=== PATIENT | female | born 1995 | race Caucasian/White ===

== ENCOUNTER 2016-03-04 16:54 | Emergency (ER) | payer BC ==
[2016-03-04 17:21] VITALS: BP 131/78
--- NOTE | 2016-03-04 18:32 | UC ---
Abdominal Pain Female HPI - HPI Summary HPI Summary: intermittent nausea and vomiting for past few weeks. Feels a wave of nausea, has a small amount of emesis. "I could probably control it and not vomit if I tried hard enough." No new meds. No new foods. No medical illnesses. No weight loss. Appetite is good despite the N/V. Did a home test recently, it was negative. She is on contraceptives, hasn't changed recently. Regular menses , expects period any day. NO vaginal discharge or spotting. Today she noticed mild urinary discomfort, but no urinary symptoms before today. - History of Current Complaint Chief Complaint: UCGeneralIllness Stated Complaint: NAUSEA,VOMITING Time Seen by Provider: 03/04/16 18:19 Hx Obtained From: Patient Hx Last Menstrual Period: 02/11/16 Onset/Duration: Lasting Weeks - 2 Timing: Intermittent Episodes Lasting: - a few seconds of nausea Severity Initially: Mild Severity Currently: None - did vomit three times today ("tiny amounts"), which was her worst day so far. No abdominal pain Radiates: No Character: Other - there is no abdominal discomfort Aggravating Factor(s): Nothing Alleviating Factor(s): Nothing Associated Signs and Symptoms: Positive: Urinary Symptoms - today noted slight dysuria/burning, Nausea, Vomiting. Negative: Diaphoresis, Fever, Cough, Chest Pain, Dizzy, Back Pain, Constipation, Blood in Stool, Decreased Appetite, Vaginal Bleeding, Vaginal Discharge, Diarrhea - Risk Factors Ectopic Risk Factor: Negative Ovarian Torsion Risk Factor: Negative Allergies/Adverse Reactions: Allergies Allergy/AdvReac Type Severity Reaction Status Date / Time Penicillins Allergy Unknown Unknown Verified 03/04/16 17:21 Reaction Details Home Medications: Home Medications Oral Contraceptives DAILY 03/04/16 [History] PMH/Surg Hx/FS Hx/Imm Hx Previously Healthy: Yes Psychological History Of: Reports: Bipolar Disorder - Surgical History Surgical History: None - Family History Known Family History: Negative: Cardiac Disease Family History: no cardio-vascular issues in family lineage - Social History Occupation: Employed Full-time Lives: With Family Alcohol Use: Weekly Substance Use Type: None Smoking Status (MU): Never Smoked Tobacco - Immunization History Vaccination Up to Date: Yes Review of Systems Constitutional: Negative Skin: Negative Eyes: Negative ENT: Negative Respiratory: Negative Cardiovascular: Negative Gastrointestinal: Vomiting - nausea Genitourinary: Negative Motor: Negative Neurovascular: Negative Musculoskeletal: Negative Neurological: Negative Psychological: Negative All Other Systems Reviewed And Are Negative: Yes Physical Exam Triage Information Reviewed: Yes Appearance: Well-Appearing, No Pain Distress, Well-Nourished Vital Signs: Initial Vital Signs Temp 98.1 F 03/04/16 17:17 Pulse 86 03/04/16 17:17 Resp 14 03/04/16 17:17 BP 131/78 03/04/16 17:17 Pulse Ox 100 03/04/16 17:17 Vital Signs Reviewed: Yes Eye Exam: Normal ENT Exam: Normal Neck exam: Normal Neck: Positive: Supple, Nontender Respiratory Exam: Normal Respiratory: Positive: Lungs clear, Normal breath sounds Abdominal Exam: Normal Abdomen Description: Positive: Nontender, No Organomegaly, Soft. Negative: Bruit, CVA Tenderness (R), CVA Tenderness (L), Distended, Guarding, Hernia @, Hepatomegaly, McBurney's Point Tenderness, Peritoneal Signs, Pulsatile Mass, Splenomegaly Musculoskeletal Exam: Normal Neurological Exam: Normal Psychological Exam: Normal Skin Exam: Normal Diagnostics - Laboratory Diagnostic Studies Completed/Ordered: U/A dip 3+ leuks, blood, protein Abd Pain Female Course/Dx - Differential Dx/Diagnosis Differential Diagnosis: Pelvic Inflammatory Disease, , Urinary Tract Infection Provider Diagnoses: UTI Discharge - Discharge Plan Condition: Stable Disposition: HOME Prescriptions: Cephalexin CAP* [Keflex CAP*] 500 mg PO TID #21 cap Patient Education Materials: Urinary Tract Infection in Women (ED) Referrals: Alisia Roman MD [Primary Care Provider] -
== END 2016-03-04 18:52 | disposition home or self-care (01) ==
LOC: UCCORT 16:54
DX: N39.0 Urinary tract infection, site not specified (principal); Z88.0 Allergy status to penicillin
CPT/HCPCS: 81025; 87077; 87086; 87186; 99212; G0463

== ENCOUNTER 2016-07-13 18:33 | Emergency (ER) | payer SELFPAY ==
[2016-07-13 19:49] VITALS: BP 132/65
[2016-07-13] MEDS ORDERED: Silver Sulfadiazine 1%* 20 GM TOPICAL ONE (20:25)
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
== END 2016-07-13 20:46 | disposition home or self-care (01) ==
LOC: UCCORT 18:33
DX: T22.122A Burn of first degree of left elbow, initial encounter (principal); T31.0 Burns involving less than 10% of body surface; X19.XXXA Contact with other heat and hot substances, initial encounter; Y93.9 Activity, unspecified; Y92.89 Other specified places as the place of occurrence of the external cause; Y99.0 Civilian activity done for income or pay; Z88.0 Allergy status to penicillin; F31.9 Bipolar disorder, unspecified
CPT/HCPCS: 99212; A9270-GY; G0463

== ENCOUNTER 2016-08-01 13:50 | Emergency (ER) | payer BC ==
[2016-08-01 14:12] VITALS: BP 111/62
--- NOTE | 2016-08-01 14:22 | UC ---
Throat Pain/Nasal [place] HPI - HPI Summary HPI Summary: pt presents with c/o sore throat, that is "itchy" x 2days. X - History of Current Complaint Chief Complaint: UCGeneralIllness Stated Complaint: SORE THROAT Time Seen by Provider: 08/01/16 14:16 Hx Obtained From: Patient Hx Last Menstrual Period: 07/27/16 ?: No Onset/Duration: Gradual Onset, Lasting Days - 2 Severity: Mild Associated Signs & Symptoms: Positive: Dysphagia Related History: Seasonal Allergies - Epiglottits Risk Factors Epiglottis Risk Factors: Negative - Allergies/Home Medications Allergies/Adverse Reactions: Allergies Allergy/AdvReac Type Severity Reaction Status Date / Time Penicillins Allergy Unknown Unknown Verified 08/01/16 13:56 Reaction Details PMH/Surg Hx/FS Hx/Imm Hx Previously Healthy: Yes - Surgical History Surgical History: None - Family History Known Family History: Negative: Cardiac Disease Family History: no cardio-vascular issues in family lineage - Social History Alcohol Use: None Substance Use Type: None Smoking Status (MU): Never Smoked Tobacco - Immunization History Vaccination Up to Date: Yes Review of Systems Constitutional: Negative Skin: Negative Eyes: Negative ENT: Sore Throat Respiratory: Negative Cardiovascular: Negative Gastrointestinal: Negative Genitourinary: Negative Motor: Negative Neurovascular: Negative Musculoskeletal: Negative Neurological: Negative Psychological: Negative All Other Systems Reviewed And Are Negative: Yes Physical Exam Triage Information Reviewed: Yes Appearance: Well-Appearing Vital Signs: Initial Vital Signs Temp 97.7 F 08/01/16 13:56 Pulse 65 08/01/16 13:56 Resp 16 08/01/16 13:56 BP 111/62 08/01/16 13:56 Pulse Ox 100 08/01/16 13:56 Vital Signs Reviewed: Yes Eye Exam: Normal ENT Exam: Other ENT: Positive: Tonsillar swelling, Tonsillar exudate Neck exam: Normal Respiratory Exam: Normal Cardiovascular Exam: Normal Musculoskeletal Exam: Normal Neurological Exam: Normal Psychological Exam: Normal Skin Exam: Normal Throat Pain/Nasal Course/Dx - Differential Dx/Diagnosis Differential Diagnosis/HQI/PQRI: Pharyngitis, Tonsillitis Provider Diagnoses: tonsillitis Discharge - Discharge Plan Condition: Stable Disposition: HOME Patient Education Materials: Tonsillitis (ED) Referrals: Alisia Roman MD [Primary Care Provider] - If Needed
== END 2016-08-01 14:25 | disposition home or self-care (01) ==
LOC: UCCORT 13:50
DX: J03.90 Acute tonsillitis, unspecified (principal); Z88.0 Allergy status to penicillin
CPT/HCPCS: 87651; 99211; G0463

== ENCOUNTER 2017-08-10 14:58 | Emergency (ER) | payer BC, OTHER ==
[2017-08-10 15:19] VITALS: BP 110/58
--- NOTE | 2017-08-10 15:54 | ED ---
Throat Pain/Nasal Congestion - HPI Summary HPI Summary: 22 yr old female with sore throat for about a week. no runny nose, no coughing , no fever. She was concerned she could have strep. No other complaints. - History of Current Complaint Chief Complaint: UCRespiratory Time Seen by Provider: 08/10/17 15:36 - Allergies/Home Medications Allergies/Adverse Reactions: Allergies Allergy/AdvReac Type Severity Reaction Status Date / Time Penicillins Allergy Unknown family hx Verified 08/10/17 15:11 Home Medications: Home Medications Loratadine [Claritin 10 MG CAP] 10 mg PO DAILY PRN 08/10/17 [History Confirmed 08/10/17] PMH/Surg Hx/FS Hx/Imm Hx Psychiatric History: Reports: Hx Bipolar Disorder Infectious Disease History: No Infectious Disease History: Denies: Traveled Outside the [place] in Last 30 Days - Family History Known Family History: Negative: Cardiac Disease Family History: no cardio-vascular issues in family lineage - Social History Alcohol Use: Occasionally Substance Use Type: Reports: None Smoking Status (MU): Never Smoked Tobacco Review of Systems Positive: Sore Throat All Other Systems Reviewed And Are Negative: Yes Physical Exam Triage Information Reviewed: Yes Vital Signs On Initial Exam: Initial Vitals Temp Pulse Resp BP Pulse Ox 98.4 F 62 16 110/58 100 08/10/17 15:12 08/10/17 15:12 08/10/17 15:12 08/10/17 15:12 08/10/17 15:12 Vital Signs Reviewed: Yes Appearance: Positive: Well-Appearing, No Pain Distress Skin: Positive: Warm, Skin Color Reflects Adequate Perfusion Head/Face: Positive: Normal Head/Face Inspection Eyes: Positive: EOMI ENT: Positive: Pharyngeal erythema, TMs normal, Tonsillar swelling - mild, Uvula midline. Negative: Trismus, Muffled voice, Hoarse voice Neck: Positive: Supple, Nontender, Enlarged Nodes @ - anterior superior left greater than right. Respiratory/Lung Sounds: Positive: Clear to Auscultation, Breath Sounds Present Cardiovascular: Positive: RRR. Negative: Murmur Abdomen Description: Positive: Nontender Musculoskeletal: Positive: Strength/ROM Intact Neurological: Positive: Sensory/Motor Intact, Alert, Oriented to Person Place, Time, CN Intact II-III Psychiatric: Positive: Normal - [place] Coma Scale Best Eye Response: 4 - Spontaneous Best Motor Response: 6 - Obeys Commands Best Verbal Response: 5 - Oriented Coma Scale Total: 15 Diagnostics - Vital Signs Vital Signs Temp Pulse Resp BP Pulse Ox 08/10/17 15:12 98.4 F 62 16 110/58 100 - Laboratory Lab Results: Lab Results 08/10/17 Range/Units 15:22 Group A Strep Rapid Negative (Negative) Lab Statement: Any lab studies that have been ordered have been reviewed, and results considered in the medical decision making process. EENT Course/Dx - Course Course Of Treatment: 22 yr old female with sore throat, URI. Plan DC home. Rapid strep negative. - Diagnoses Provider Diagnoses: Pharyngitis Discharge - Sign-Out/Discharge Documenting (check all that apply): Discharge/Admit/Transfer - Discharge Plan Condition: Good Disposition: HOME Patient Education Materials: Upper Respiratory Infection (ED) Forms: *Work Release Referrals: Aliisa Roman MD [Primary Care Provider] - 2 Days - Billing Disposition and Condition Condition: GOOD Disposition: Home
== END 2017-08-10 15:54 | disposition home or self-care (01) ==
LOC: UCCORT 14:58
DX: J02.9 Acute pharyngitis, unspecified (principal); Z88.0 Allergy status to penicillin
CPT/HCPCS: 87651; 99211; G0463